=== PATIENT | female | born 2000 | race Caucasian/White ===

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

== ENCOUNTER → 2021-06-10 | Outpatient (CLI) | payer MEDICAID ==
[2021-06-10 08:26] LABS: BASOPHILS % (AUTO) 1 % (0-10); EOSINOPHILS # (AUTO) 0.1 10^3/uL (0.0-0.3); EOSINOPHILS % (AUTO) 1 % (0-10); HEMATOCRIT 39 % (35-52); LYMPHOCYTES % (AUTO) 25 % (12-44); MEAN CORPUSCULAR HEMOGLOBIN 29 pg (25-34); MEAN CORPUSCULAR HGB CONC 34 g/dL (32-36); MEAN CORPUSCULAR VOLUME 87 fL (80-99); MONOCYTES # (AUTO) 0.5 10^3/uL (0.0-1.0); MONOCYTES % (AUTO) 6 % (0-12); NEUTROPHILS # (AUTO) 5.5 10^3/uL (1.8-7.8); NEUTROPHILS % (AUTO) 67 % (42-75); PLATELET COUNT 326 10^3/uL (130-400); WHITE BLOOD COUNT 8.1 10^3/uL (4.3-11.0)
[2021-06-10 08:47] LABS: ALBUMIN 4.2 GM/DL (3.2-4.5); BILIRUBIN,DIRECT 0.2 MG/DL (0.0-0.3); BILIRUBIN,INDIRECT 0.3 MG/DL; BILIRUBIN,TOTAL 0.5 MG/DL (0.1-1.0); CALCIUM 9.2 MG/DL (8.5-10.1); CREATININE SERUM 0.66 MG/DL (0.60-1.30); POTASSIUM 4.2 MMOL/L (3.6-5.0); TOTAL PROTEIN 7.3 GM/DL (6.4-8.2)
== END ==
LOC: LAB 07:52
PROVIDERS: ATTEND Pediatrics
DX: D50.8 Other iron deficiency anemias (principal); E66.3 Overweight
CPT/HCPCS: 36415; 80048; 80061; 80076; 82728; 83036; 83540; 83550; 85025

== ENCOUNTER → 2021-07-26 | Outpatient (RCR) | payer MEDICAID | END | disposition home or self-care (01) | PROVIDERS: ATTEND Pediatrics | DX: M25.561 Pain in right knee (principal) ==

== ENCOUNTER 2021-07-28 16:10 | Outpatient (RCR) | payer MEDICAID | END 2021-07-28 17:00 | disposition home or self-care (01) | PROVIDERS: ATTEND Pediatrics | DX: M25.561 Pain in right knee (principal) ==